=== PATIENT | female | born 1995 | race Caucasian/White ===

== ENCOUNTER 2024-08-11 20:47 | Emergency (ER) | payer BC, OTHER ==
--- NOTE | 2024-08-11 20:55 | ERPHSYRPT ---
- History of Present Illness Time Seen by Provider: 08/11/24 20:55 Source: patient, family Exam Limitations: no limitations Physician History: This is a 29-year-old obese white female patient who is 12 weeks and arrives by private vehicle accompanied by her spouse with a complaint of nonproductive cough and congestion for 2 days. Patient does not take any medications chronically and she has no known drug allergies. Patient denies chest pain. She has no calf pain. She has not had hemoptysis. She has no shortness of breath and has not had fevers. However, the coughing episodes have been more forceful and more frequent in the last 24 hours. There have been no known exposures. Timing/Duration: day(s) (2), intermittent Cough Quality/Degree: moderate, dry cough Possible Cause: no prior episodes Modifying Factors: Improves With: coughing Associated Symptoms: cough, sore throat, No fever, No chest pain/soreness, No dizziness, No headache, No shortness of breath Allergies/Adverse Reactions: No Known Drug Allergies Allergy (Verified 08/11/24 20:52) Travel Risk - International Travel Have you traveled outside of the country in past 3 weeks: No - Emerging Infectious Disease Are you exhibiting symptoms associated with any current EIDs: Yes Symptoms: Cough: New Onset - Review of Systems Constitutional: No Symptoms Eyes: No Symptoms Ears, Nose, & Throat: Throat Pain Respiratory: Cough, Wheezing Cardiac: No Symptoms Abdominal/Gastrointestinal: No Symptoms Genitourinary Symptoms: No Symptoms Musculoskeletal: No Symptoms Skin: No Symptoms Neurological: No Symptoms Psychological: No Symptoms Endocrine: No Symptoms Hematologic/Lymphatic: No Symptoms Immunological/Allergic: No Symptoms All Other Systems: Reviewed and Negative - Past Medical History Pertinent Past Medical History: Yes - Nursing Vital Signs Nursing Vital Signs: Initial Vital Signs Temperature 99.1 F 08/11/24 20:48 Pulse Rate 99 H 08/11/24 20:48 Respiratory Rate 16 08/11/24 20:48 O2 Sat by Pulse Oximetry 98 08/11/24 20:48 Pain Scale Pain Intensity 4 - Physical Exam General Appearance: no apparent distress, alert, anxiety, obese Eye Exam: PERRL/EOMI, eyes nml inspection Ears, Nose, Throat Exam: normal ENT inspection, TMs normal, pharynx normal, moist mucous membranes Neck Exam: normal inspection, non-tender, supple, full range of motion Respiratory Exam: normal breath sounds, lungs clear, airway intact, wheezing (Bilateral expiratory wheezing), No chest tenderness, No respiratory distress Cardiovascular Exam: regular rate/rhythm, normal heart sounds, normal peripheral pulses Gastrointestinal/Abdomen Exam: soft, normal bowel sounds, No tenderness Pelvic Exam: not done Rectal Exam: not done Back Exam: normal inspection, normal range of motion, No CVA tenderness Extremity Exam: normal inspection, normal range of motion, pelvis stable Neurologic Exam: alert, oriented x 3, cooperative, warehouse stocker II-XII nml as tested, nml cerebellar function, nml station & gait, sensation nml Skin Exam: normal color, warm, dry Lymphatic Exam: No adenopathy SpO2 Interpretation: normal - Course Nursing assessment & vital signs reviewed: Yes Ordered Tests: Active Orders 24 hr Category Date Time Status Respiratory Therapy Assessment DAILY RT 08/11/24 21:30 Active Medication Summary Discontinued Medications Generic Name Dose Route Start Last Admin Trade Name Freq PRN Reason Stop Dose Admin Albuterol/Ipratropium Confirm 08/11/24 21:21 Ipratropium/Albuterol Sulfate 3 Ml Ampul.Neb Administered 08/11/24 21:22 Dose 3 ml IH .STK-MED ONE Albuterol/Ipratropium 3 ml 08/11/24 21:31 08/11/24 21:31 Ipratropium/Albuterol Sulfate 3 Ml Ampul.Neb IH 08/11/24 21:32 3 ml STAT ONE Administration Lab/Rad Data: Laboratory Results 08/11/24 08/11/24 Range/Units 21:27 21:27 Influenza Type A Ag NEGATIVE (NEGATIVE) Influenza Type B Ag NEGATIVE (NEGATIVE) RSV (PCR) NEGATIVE (NEGATIVE) SARS-CoV-2 (PCR) NEGATIVE (NEGATIVE) Group A Strep Antibody NOT DETECTED (NEGATIVE) - Progress Progress: improved, re-examined Air Movement: good Progress Note: 08/11/24 21:28 My medical decision making and the assignment of low to moderate complexity of this patient's medical issue today is based on review of the patient's past medical history, review of the patient's medication list, review of patient drug allergy list, history present illness and physical findings on examination. The workup in this patient includes viral swabs and group A strep test. In addition I will have respiratory therapy evaluate this patient for possible nebulizer treatment of albuterol. Differential diagnosis includes but is not limited to viral illness, bronchitis, upper respiratory infection, pneumonia 08/11/24 22:18 I interpreted the patient's laboratory data results. Based on the laboratory data results, the patient tested negative for viral swabs and group A strep pharyngitis. Together, the patient and I decided not to perform a chest x-ray. I do not believe this test/study is necessary in this patient. She is 12 weeks . She does have a history of miscarriage late in her . I will provide her with cefdinir 300 mg orally twice a day for 5 days. She was instructed to use Benadryl, guaifenesin and dextromethorphan as instructed on the [id number] packaging to help suppress her cough. I also discussed with the use of albuterol inhaler. She and her spouse were informed that there is a low risk to the fetus during . She is aware I cannot guarantee her, nor can anyone else, that the use of albuterol inhaler is 100% safe for the fetus. I will send a prescription to her pharmacy and she can choose to fill that prescription. Blood Culture(s) Obtained: No Antibiotics given: Yes Counseled pt/family regarding: lab results, diagnosis, need for follow-up Medical Desision Making - Independent Historian Additional History obtained from: Spouse - Diagnostic Testing Diagnostic test were ordered, analyzed, and reviewed by me: Yes - Risk of complications The pt has a mod risk of morbidity or mortality based on: Need for prescription drug management - Departure Departure Disposition: Home Clinical Impression: Upper respiratory infection Condition: Stable Critical Care Time: No Referrals: BAILEY PAZ MD [Primary Care Provider, [facility]] - Follow up/PCP as directed Additional Instructions: Drink plenty of clear liquids. Take your antibiotics and other medications as prescribed. Call your inspector bicycle tomorrow, 08/12/2024, to make arrangements for follow-up appointment for further evaluation and management and to discuss the use of albuterol during . Use, as directed on the [id number] packaging, Benadryl, dextromethorphan, guaifenesin for cough suppression Prescriptions: Cefdinir 300 mg PO BID #10 cap Albuterol 8 gm Mdi Hfa [Ventolin Hfa MDI] 8 gm IH Q4H #1 unit
[2024-08-11 21:03] VITALS: TEMP 99.1
[2024-08-11] MEDS ORDERED: DUONEB 0.5-3 MG/3 ml Neb IH ONE (21:21)
[2024-08-11] MEDS: DUONEB 0.5-3 MG/3 ml Neb IH ONE (21:31)
[2024-08-11 21:55] VITALS: PULSE 90; RESP 20
[2024-08-11 22:06] LABS: INFLUENZA A NEGATIVE (NEGATIVE); INFLUENZA B NEGATIVE (NEGATIVE); RESPIRATORY SYNCTIAL VIRUS NEGATIVE (NEGATIVE); SARS-CoV-2 Xpert Express NEGATIVE (NEGATIVE)
[2024-08-11 22:17] VITALS: BP 121/73; O2SAT 95
[2024-08-11] MEDS ORDERED: Rocephin 1000 MG INJ ONE (22:21)
[2024-08-11] MEDS ORDERED: XYLOCAINE 1% HCL 20 ML MDV ONE (22:21)
[2024-08-11] MEDS: Rocephin 1000 MG INJ IM ONE (22:29)
[2024-08-11] MEDS: Robitussin-Dm Syrup PO ONE (22:29)
== END 2024-08-11 22:48 | disposition home or self-care (01) ==
LOC: ED 20:47
DX: O99.511 Diseases of the respiratory system complicating pregnancy, first trimester (principal); J06.9 Acute upper respiratory infection, unspecified; Z3A.12 12 weeks gestation of pregnancy; R05.1 Acute cough; Z79.899 Other long term (current) drug therapy
CPT/HCPCS: 0241U; 87651; 94640; 96372; 99283; J0696; A9270-GY